=== PATIENT | female | born 1950 | race Caucasian/White ===

== ENCOUNTER 2019-08-25 09:42 | Inpatient (IN) ==
[2019-08-25] MEDS ORDERED: Ringers Solution, Lactated 1,000 ML IVC SCH (10:00)
[2019-08-25] MEDS ORDERED: *HR* OxyCODONE Immed Rel 5 MG TABLET PO PRN (10:18)
[2019-08-25] MEDS ORDERED: *HR* Promethazine 25 MG/ML VIAL IVP PRN (10:18)
[2019-08-25] MEDS ORDERED: Ondansetron 4 MG/2 ML VIAL IVP ONE (10:18)
[2019-08-25] MEDS ORDERED: Famotidine 20 MG/2 ML VIAL IVP ONE (10:18)
[2019-08-25] MEDS ORDERED: Acetaminophen IV 1,000 MG/100 ML INFUS..BTL IVPB ONE (10:18)
[2019-08-25] MEDS ORDERED: *HR* Midazolam HCl 2 MG/2 ML VIAL ONE (10:24)
[2019-08-25] MEDS ORDERED: *HR* FentaNYL (PF) 100 MCG/2 ML VIAL ONE (10:24)
[2019-08-25] MEDS ORDERED: *HR* Propofol 200 MG/20 ML VIAL IVP ONE (10:24)
[2019-08-25] MEDS ORDERED: *HR* Rocuronium Bromide 50 MG/5 ML VIAL ONE (10:32)
[2019-08-25] MEDS ORDERED: Lidocaine -MPF 2% 2 ML VIAL ONE (10:32)
[2019-08-25] MEDS ORDERED: Ondansetron 4 MG/2 ML VIAL ONE (10:32)
[2019-08-25] MEDS ORDERED: Lidocaine HCL 4 ML Topical Solution (Laryng-O-Jet Kit Sterile Pak) TP ONE (10:32)
[2019-08-25] MEDS ORDERED: *HR* Succinylcholine 200 MG/10 ML VIAL IVP ONE (10:35)
[2019-08-25] MEDS ORDERED: Bupivacaine/EPI 1:200k 0.25%PF 30 ML VIAL ONE (12:44)
[2019-08-25] MEDS ORDERED: EPHEDrine 50 MG/ML VIAL ONE (12:48)
[2019-08-25] MEDS: *HR* HYDROmorphone (PF) 1 MG/ML SYRINGE IVP PRN ×4 (15:19→15:36)
[2019-08-25] MEDS ORDERED: Ketorolac 30 MG/ML VIAL IVP ONE (15:41)
[2019-08-25] MEDS ORDERED: Naloxone 0.4 MG/ML INJ IVP PRN (16:06)
[2019-08-25] MEDS ORDERED: Ondansetron 4 MG/2 ML VIAL IVP PRN (16:06)
[2019-08-25] MEDS ORDERED: D5% in Water 1,000 ML IVC PRN (17:36)
[2019-08-25] MEDS ORDERED: Dextrose Gel 15 GM/37.5 ML TUBE PO PRN ×2 (17:36)
[2019-08-25] MEDS ORDERED: *HR* Dextrose 50 % in Water (Syg) 50 ML SYRINGE IVP PRN (17:36)
[2019-08-25] MEDS ORDERED: LIRAGLUTIDE 1.8 MG SQ SCH (18:00)
[2019-08-25] MEDS: Insulin LISPRO 300 UNITS/3 ML VIAL SQ SCH ×2 (18:12→21:41)
[2019-08-25] MEDS: 0.9 % Sodium Chloride 1,000 ML IVC SCH (18:31)
[2019-08-25] MEDS: BuPROPion SR (12 HR) 150 MG TABLET PO SCH (21:39)
[2019-08-25] MEDS: Latanoprost 2.5 ML BOTTLE BOTH EYES SCH (21:40)
[2019-08-25] MEDS: *HR* OxyCODONE/APAP 5/325 TABLET PO PRN (21:40)
[2019-08-26] MEDS: 0.9 % Sodium Chloride 1,000 ML IVC SCH (01:36)
[2019-08-26] MEDS: *HR* OxyCODONE/APAP 5/325 TABLET PO PRN ×4 (01:37→22:33)
[2019-08-26] MEDS: Insulin LISPRO 300 UNITS/3 ML VIAL SQ SCH ×4 (08:05→22:08)
[2019-08-26] MEDS: hydroCHLOROthiazide 25 MG TABLET PO SCH (08:05)
[2019-08-26] MEDS: *HR* Pioglitazone 30 MG TABLET PO SCH (08:06)
[2019-08-26] MEDS: BuPROPion SR (12 HR) 150 MG TABLET PO SCH ×2 (08:06→22:06)
[2019-08-26] MEDS: *HR* HYDROcodone/Acet 5/325 mg TABLET PO PRN ×2 (08:06→14:05)
[2019-08-26 08:55] LABS: Basophils % 0.4 %; Eosinophils # 0.1 K/mcL (0.0-0.6); Eosinophils % 0.8 %; Hematocrit 30.9 % (35.3-44.9); Hemoglobin 9.7 g/dL (11.5-15.4); Immature Granulocytes % 0.3 % (0-4); Lymphocytes # 1.5 K/mcL (0.6-4.6); Lymphocytes % 19.8 %; Mean Corpuscular HGB Conc 31.4 g/dL (31.6-35.5); Mean Corpuscular Hemoglobin 29.2 pg (28.0-33.3); Mean Corpuscular Volume 93.1 fL (83.0-100.0); Mean Platelet Volume 10.8 fL (9.4-12.4); Monocytes % 12.8 %; Neutrophils # 5.1 K/mcL (1.6-8.9); Platelet Count 216 K/mcL (140-400); Red Blood Count 3.32 M/mcL (3.82-4.97); Red Cell Distribution Width 13.6 % (11.5-14.5); Segmented Neutrophils % 65.9 %; White Blood Count 7.7 K/mcL (4.3-11.1)
[2019-08-26 09:30] LABS: eGFR For African Americans > 60 (> 60); eGFR For Non-African Americans > 60 (> 60)
[2019-08-26] MEDS: Latanoprost 2.5 ML BOTTLE BOTH EYES SCH (22:07)
[2019-08-27] MEDS: *HR* OxyCODONE/APAP 5/325 TABLET PO PRN ×2 (04:18→08:05)
[2019-08-27] MEDS: hydroCHLOROthiazide 25 MG TABLET PO SCH (07:42)
[2019-08-27] MEDS: *HR* Pioglitazone 30 MG TABLET PO SCH (07:43)
[2019-08-27] MEDS: BuPROPion SR (12 HR) 150 MG TABLET PO SCH (07:44)
[2019-08-27] MEDS: Insulin LISPRO 300 UNITS/3 ML VIAL SQ SCH ×2 (07:47→11:13)
[2019-08-27] MEDS ORDERED: Ibuprofen 600 MG TABLET PO SCH (08:09)
[2019-08-27 11:23] VITALS: BP 134/69
== END 2019-08-27 13:27 | disposition home or self-care (01) | DRG 742 ==
LOC: SAMDAY 09:42 → 1NENUOBS 14:58
PROVIDERS: ADMIT Obstetrics & Gynecology; ATTEND Obstetrics & Gynecology